=== PATIENT | male | born 1980 ===

== ENCOUNTER 2017-02-17 18:40 | Emergency (ER) | payer BC ==
[2017-02-17 19:06] VITALS: BP 122/72; PULSE 80; RESP 16; TEMP 98.4; O2SAT 98; BMI 30.2
--- NOTE | 2017-02-17 19:53 | ED PDOC ---
Arrival/HPI - General Chief Complaint: Cough, Cold, Congestion Time Seen by Provider: 02/17/17 18:51 Historian: Patient - History of Present Illness Narrative History of Present Illness (Text): 02/17/17 19:50 36-year-old male presents today with a 6 week history of dry nonproductive cough. Patient was seen by his primary care physician and started on Zithromax as well as Zyrtec. Patient states the cough has continued. Patient states he had a chest x-ray 2 weeks ago and has a scheduled appointment with a granulator operator but it is a month out. Patient states he is concerned because he still has cough. Denies fevers or chills. No chest pain or shortness of breath. Patient states he has a history of GERD and takes omeprazole daily. Patient with a history of postnasal drip in the past does not take any medications. States is some slight nasal congestion. No other complaints Time/Duration: > week (6 weeks) Symptom Onset: Gradual Symptom Course: Unchanged Severity Level: Mild Past Medical History - Provider Review Nursing Documentation Reviewed: Yes - Travel History Have you recently traveled outside [place] w/in the past 3 mons?: No - Infectious Disease Hx of Infectious Diseases: None - Tetanus Immunization Tetanus Immunization: Unknown - Past Medical History Past Medical History: No Previous - Cardiac Hx Cardiac Disorders: No - Pulmonary Hx Respiratory Disorders: Yes Hx Sleep Apnea: Yes (cpap at home) - Neurological Hx Neurological Disorder: No - HEENT Hx HEENT Disorder: No - Renal Hx Renal Disorder: Yes Hx Kidney Stones: Yes (lithotripsy x2) - Endocrine/Metabolic Hx Endocrine Disorders: No - Hematological/Oncological Hx Blood Disorders: No - Integumentary Hx Psoriasis: Yes (knees arms fingers) - Musculoskeletal/Rheumatological Hx Musculoskeletal Disorders: Yes (scoliosis) Hx Back Pain: Yes Other/Comment: chronic r knee pain - Gastrointestinal Hx Gastrointestinal Disorders: Yes Hx Gastroesophageal Reflux: Yes - Genitourinary/Gynecological Hx Genitourinary Disorders: Yes Hx Hematuria: Yes Other/Comment: Chronic testicular pain - Psychiatric Hx Psychophysiologic Disorder: No Hx Substance Use: No - Past Surgical History Past Surgical History: No Previous - Surgical History Hx Orthopedic Surgery: Yes (right pinky as a child) Other/Comment: lithotripsy x2 - Anesthesia Hx Anesthesia: Yes Hx Anesthesia Reactions: No Hx Malignant Hyperthermia: No - Suicidal Assessment Feels Threatened In Home Enviroment: No Family/Social History - Physician Review Nursing Documentation Reviewed: Yes Family/Social History: Unknown Family HX Smoking Status: Never Smoked Hx Alcohol Use: No Hx Substance Use: No Hx Substance Use Treatment: No Allergies/Home Meds Allergies/Adverse Reactions: Allergies No Known Allergies Allergy (Verified 06/30/16 03:13) Home Medications: Home Meds Medication Instructions Recorded Confirmed Omeprazole 40 mg PO DAILY 06/10/16 02/17/17 Review of Systems - Review of Systems Constitutional: absent: Fatigue, Fevers ENT: Sinus Congestion. absent: Sore Throat Respiratory: Cough. absent: SOB, Sputum, Wheezing Cardiovascular: absent: Chest Pain, Palpitations Gastrointestinal: absent: Abdominal Pain, Nausea, Vomiting Genitourinary Male: absent: Dysuria, Frequency, Hematuria Musculoskeletal: absent: Arthralgias, Back Pain, Neck Pain Skin: absent: Rash, Pruritis Neurological: absent: Headache, Dizziness Psychiatric: absent: Anxiety, Depression Physical Exam Vital Signs Reviewed: Yes Vital Signs Temp Pulse Resp BP Pulse Ox 02/17/17 19:05 98.4 F 80 16 122/72 98 Temperature: Afebrile Blood Pressure: Normal Pulse: Regular Respiratory Rate: Normal Appearance: Positive for: Well-Appearing, Non-Toxic, Comfortable Pain Distress: None Mental Status: Positive for: Alert and Oriented X 3 - Systems Exam Head: Present: Atraumatic Conjunctiva: Present: Normal Mouth: Present: Moist Mucous Membranes. No: Drooling, Trismus Pharnyx: Present: Normal. No: ERYTHEMA, EXUDATE, TONSILS ENLARGED, Peritonsilar Swelling, Uvular Deviation Nose (External): Present: Atraumatic Nose (Internal): Present: Normal Inspection Neck: Present: Normal Range of Motion, Trachea Midline Respiratory/Chest: Present: Clear to Auscultation, Good Air Exchange. No: Respiratory Distress, Accessory Muscle Use Cardiovascular: Present: Regular Rate and Rhythm, Normal S1, S2. No: Murmurs Neurological: Present: GCS=15 Skin: Present: Warm, Dry, Normal Color. No: Rashes Psychiatric: Present: Alert, Oriented x 3 Medical Decision Making ED Course and Treatment: 02/17/17 19:54 36-year-old male with cough 6 weeks Chest x-ray shows no infiltrate effusion or cardiomegaly pt has already completed a course of ABX (zithromax). will d/c home with albuterol, singular, flonase. will have patient f/u with PMD within the next 2 days. advised f/u with granulator operator as directed by his primary care physician. Patient verbalizes understanding of discharge instructions and need for immediate followup. all aspects of this case were discussed the attending of record. Impression: Cough, chronic Albuterol 2 puffs every 4-6 hours as needed for cough Singulair once daily Flonase 2 sprays each nostril once daily Continue taking her omeprazole daily Follow-up with primary care physician within the next 2 days Follow-up with a granulator operator within the next 2 days Return if symptoms worsen or persist or if new concerning symptoms develop - RAD Interpretation Radiology Orders: 02/17/17 19:11 CHEST TWO VIEWS (PA/LAT) [RAD] Stat Disposition/Present on Arrival - Present on Arrival Any Indicators Present on Arrival: No History of DVT/PE: No History of Uncontrolled Diabetes: No Urinary Catheter: No History of Decub. Ulcer: No History Surgical Site Infection Following: None - Disposition Have Diagnosis and Disposition been Completed?: Yes Diagnosis: Cough Disposition: HOME/ ROUTINE Disposition Time: 19:59 Patient Plan: Discharge Condition: GOOD Discharge Instructions (ExitCare): Acute Cough (ED) Additional Instructions: Albuterol 2 puffs every 4-6 hours as needed for cough Singulair once daily Flonase 2 sprays each nostril once daily Continue taking her omeprazole daily Follow-up with primary care physician within the next 2 days Follow-up with a granulator operator within the next 2 days Return if symptoms worsen or persist or if new concerning symptoms develop Prescriptions: Albuterol HFA [Ventolin HFA 90 mcg/actuation (8 g)] 2 puff IH [id number] PRN #1 inhaler PRN Reason: Cough Fluticasone Nasal [Flonase] 2 spr NS DAILY #1 spr Montelukast Sodium [Singulair] 10 mg PO DAILY #30 tablet Referrals: Vasiliy Keyes MD [Primary Care Provider] - Follow up with primary Madi Monaco MD [Staff Provider] - Follow up with primary Forms: WORK NOTE
--- NOTE | 2017-02-18 08:02 | RAD ---
HISTORY: cough x 6 weeks COMPARISON: 06/22/2016 TECHNIQUE: Chest PA and lateral FINDINGS: LUNGS: No active pulmonary disease. PLEURA: No significant pleural effusion identified. No pneumothorax apparent. CARDIOVASCULAR: Normal. OSSEOUS STRUCTURES: No significant abnormalities. VISUALIZED UPPER ABDOMEN: Normal. OTHER FINDINGS: None. IMPRESSION: No active disease.
== END 2017-02-17 20:55 | disposition home or self-care (01) ==
LOC: ED 18:40
DX: R05 Cough (principal)

== ENCOUNTER 2017-10-21 17:29 | Observation (INO) | payer BC ==
[2017-10-21 17:30] VITALS: BMI 30.2
[2017-10-21] MEDS ORDERED: Sodium Chloride 0.9% 1,000 ML IV STA (18:18)
[2017-10-21 19:23] LABS: GRAN # 9.08 (1.4-6.5); GRAN % 86.8 % (50.0-68.0); HEMATOCRIT 47.4 % (42.0-52.0); LYMPH # 0.7 (1.2-3.4); LYMPH % 6.7 % (22.0-35.0); MEAN CELL VOLUME 83.9 fl (80.0-105.0); MEAN CORPUSCULAR HEMOGLOBIN 26.7 pg (25.0-35.0); MEAN CORPUSCULAR HGB CONC 31.9 g/dl (31.0-37.0); MEAN PLATELET VOLUME 11.7 fl (7.0-11.0); MONO # 0.7 (0.1-0.6); MONO % 6.5 % (1.0-6.0); RED CELL DISTRIBUTION WIDTH 14.3 % (11.5-14.5); WHITE BLOOD COUNT 10.5 10^3/ul (4.5-11.0)
[2017-10-21 19:32] LABS: ALB/GLOB RATIO 1.5 (1.1-1.8); ALKALINE PHOSPHATASE 70 U/L (38-126); ALT/SGPT 62 U/L (7-56); AMYLASE 42 U/L (35-125); AST/SGOT 27 U/L (17-59); BILIRUBIN,TOTAL 1.1 mg/dL (0.2-1.3); BLOOD UREA NITROGEN 17 mg/dL (7-21); CALCIUM 9.3 mg/dL (8.4-10.5); CARBON DIOXIDE 30 mmol/L (21-33); CHLORIDE 103 mmol/L (98-107); GFR AFRICAN-AMERICAN > 60; GLUCOSE,RANDOM 103 mg/dL (70-110); LIPASE 27 U/L (23-300); POTASSIUM 3.7 mmol/L (3.6-5.0); SODIUM 144 mmol/L (132-148); TOTAL PROTEIN 7.3 g/dL (5.8-8.3)
[2017-10-21] MEDS ORDERED: Iohexol 350 MG/100 ML VIAL ONE (20:56)
--- NOTE | 2017-10-21 22:24 | ED PDOC ---
Arrival/HPI - General Historian: Patient - History of Present Illness Time/Duration: Other (2-3 days) Symptom Onset: Gradual Symptom Course: Worsening Quality: Aching, Burning Severity Level: 6 <An Rivera - Last Filed: 10/21/17 23:41> <Stiven Fry - Last Filed: 10/21/17 23:55> - General Chief Complaint: GI Problem Time Seen by Provider: 10/21/17 17:38 - History of Present Illness Narrative History of Present Illness (Text): 10/21/17 22:32 37-year-old male presents today with abdominal pain one episode of vomiting and diarrhea since this morning. Patient states he's had an upset stomach for the past 3 days but this morning he vomited once and then today was having diarrhea. Patient states other family members had similar symptoms over the weekend. Patient denies fevers or chills. Complaining of a burning and achy pain to the epigastric region. Denies urinary symptoms. Denies fevers or chills. Denies dizziness or weakness. No chest pain or shortness of breath. no medications taken at home. no other complaints. (An Rivera) Past Medical History - Provider Review Nursing Documentation Reviewed: Yes - Travel History Have you recently traveled outside [place] w/in the past 3 mons?: No - Infectious Disease Hx of Infectious Diseases: None - Tetanus Immunization Tetanus Immunization: Unknown - Past Medical History Past Medical History: No Previous - Cardiac Hx Cardiac Disorders: No - Pulmonary Hx Respiratory Disorders: Yes Hx Sleep Apnea: Yes (cpap at home) - Neurological Hx Neurological Disorder: No - HEENT Hx HEENT Disorder: No - Renal Hx Renal Disorder: Yes Hx Kidney Stones: Yes (lithotripsy x2) - Endocrine/Metabolic Hx Endocrine Disorders: Yes Hx Diabetes Mellitus Type 2: Yes - Hematological/Oncological Hx Blood Disorders: No - Integumentary Hx Psoriasis: Yes (knees arms fingers) - Musculoskeletal/Rheumatological Hx Musculoskeletal Disorders: Yes (scoliosis) Hx Back Pain: Yes Other/Comment: chronic r knee pain - Gastrointestinal Hx Gastrointestinal Disorders: Yes Hx Gastroesophageal Reflux: Yes - Genitourinary/Gynecological Hx Genitourinary Disorders: Yes Hx Hematuria: Yes Other/Comment: Chronic testicular pain - Psychiatric Hx Psychophysiologic Disorder: No Hx Substance Use: No - Past Surgical History Past Surgical History: No Previous - Surgical History Hx Orthopedic Surgery: Yes (right pinky as a child) Other/Comment: lithotripsy x2 - Anesthesia Hx Anesthesia: Yes Hx Anesthesia Reactions: No Hx Malignant Hyperthermia: No - Suicidal Assessment Feels Threatened In Home Enviroment: No <An Rivera - Last Filed: 10/21/17 23:41> Family/Social History - Physician Review Nursing Documentation Reviewed: Yes Family/Social History: Unknown Family HX Smoking Status: Never Smoked Hx Alcohol Use: No Hx Substance Use: No Hx Substance Use Treatment: No <An Rivera - Last Filed: 10/21/17 23:41> Allergies/Home Meds <An Rivera - Last Filed: 10/21/17 23:41> <Stiven Fry - Last Filed: 10/21/17 23:55> Allergies/Adverse Reactions: Allergies No Known Allergies Allergy (Verified 10/21/17 17:35) Home Medications: Home Meds Medication Instructions Recorded Confirmed Omeprazole 40 mg PO DAILY 06/10/16 10/21/17 SITagliptin [Januvia] 100 mg PO DAILY 10/21/17 10/21/17 Review of Systems - Review of Systems Constitutional: absent: Fatigue, Fevers Respiratory: absent: SOB, Cough Cardiovascular: absent: Chest Pain, Palpitations Gastrointestinal: Abdominal Pain, Diarrhea, Nausea, Vomiting Genitourinary Male: absent: Dysuria, Frequency, Hematuria Musculoskeletal: absent: Arthralgias, Back Pain, Neck Pain Skin: absent: Rash, Pruritis Neurological: absent: Headache, Dizziness Psychiatric: absent: Anxiety, Depression, Suicidal Ideation <An Rivera - Last Filed: 10/21/17 23:41> Physical Exam Vital Signs Reviewed: Yes Temperature: Afebrile Blood Pressure: Normal Pulse: Tachycardic Respiratory Rate: Normal Appearance: Positive for: Well-Appearing, Non-Toxic, Comfortable Pain Distress: None Mental Status: Positive for: Alert and Oriented X 3 - Systems Exam Head: Present: Atraumatic Mouth: Present: Moist Mucous Membranes Neck: Present: Normal Range of Motion Respiratory/Chest: Present: Clear to Auscultation, Good Air Exchange. No: Respiratory Distress, Accessory Muscle Use Cardiovascular: Present: Regular Rate and Rhythm, Normal S1, S2. No: Murmurs Abdomen: Present: Tenderness, Normal Bowel Sounds. No: Distention, Peritoneal Signs, Rebound, Guarding Back: Present: Normal Inspection. No: CVA Tenderness, Midline Tenderness, Paraspinal Tenderness Upper Extremity: Present: Normal ROM Lower Extremity: Present: Normal ROM Neurological: Present: GCS=15 Skin: Present: Warm, Dry, Normal Color. No: Rashes Psychiatric: Present: Alert, Oriented x 3 <An Rivera - Last Filed: 10/21/17 23:41> Vital Signs Temp Pulse Resp BP Pulse Ox 10/21/17 22:35 92 H 16 124/68 97 10/21/17 17:36 99.2 F 105 H 17 129/76 96 Medical Decision Making <An Rivera Joanie - Last Filed: 10/21/17 23:41> <Stiven Fry - Last Filed: 10/21/17 23:55> ED Course and Treatment: 10/21/17 22:37 Patient is nontoxic well appearing with stable vital signs presenting with abdominal pain CBC within normal limits CMP within normal limits Amylase within normal limits Lipase within normal limits Urinalysis + blood CAT scan: FINDINGS: Lower thorax: Heart size is normal. There is minimal scarring at the lung bases. ABDOMEN: Liver: There is fatty infiltration of the liver. Gallbladder and bile ducts: unremarkable Pancreas: ThePancreas is mildly atrophic. Spleen: unremarkable Adrenals: unremarkable Kidneys and ureters: There is a right renal cyst. There are low attenuation left renal lesions too small to accurately characterize.There is no pelvocaliectasis or ureterectasis. Stomach and bowel: Stomach is incompletely distended which accentuates the gastric wall.Bowel rotation is normal. There is fluid and air throughout the small bowel. There are mildly distended jejunal loops in the left upper quadrant. There is no obstruction. There is mild distal internal ileal wall thickening. There is mild prominence of the appendix. There is no pericecal inflammation.Colon is incompletely distended which limits evaluation. There is scattered diverticulosis Appendix: See stomach and bowel PELVIS: Bladder: unremarkable Reproductive: Seminal vesicles and prostate are unremarkable. ABDOMEN and PELVIS: Intraperitoneal space: There is no free air or free fluid. Bones/joints: There are degenerative changes in the osseus structures. Soft tissues: There is a small fat containing umbilical hernia. Vasculature: Vascular structures are unremarkable. Lymph nodes: There is no pathologic adenopathy. Fatty liver, no acute solid visceral abnormality; mild ileus, no obstruction; no CT findings of appendicitis or diverticulitis Patient reassessment: pt with continued abdominal tenderness; + diffuse tenderness. Discussed all results with patient in depth case discussed with dr. redmond covering for dr. keyes; accepts observational status admission. case discussed with claim review medical director. Impression: Abdominal pain, intractable observational status to med/surg. (An Rivera) - Lab Interpretations Lab Results: 10/21/17 18:50 10/21/17 18:50 Lab Results 10/21/17 22:36: Urine Color Yellow, Urine Appearance Clear, Urine pH 6.0, Ur Specific [place] 1.015, Urine Protein Trace H, Urine Glucose (UA) Negative, Urine Ketones Negative, Urine Blood Moderate H, Urine Nitrate Negative, Urine Bilirubin Negative, Urine Urobilinogen 0.2, Ur Leukocyte Esterase Negative, Urine RBC 2 - 5, Urine WBC 0 - 2, Ur Epithelial Cells 0 - 2, Amorphous Sediment Few, Urine Other Mucus 10/21/17 18:50: WBC 10.5, RBC 5.65, Hgb 15.1, Hct 47.4, MCV 83.9, MCH 26.7, MCHC 31.9, RDW 14.3, Plt Count 205, MPV 11.7 H, Gran % 86.8 H, Lymph % (Auto) 6.7 L, [place] % (Auto) 6.5 H, Eos % (Auto) 0.0 L, Baso % (Auto) 0.0, Gran # 9.08 H , Lymph # 0.7 L, [place] # 0.7 H, Eos # 0.0, Baso # 0.00 10/21/17 18:50: Sodium 144, Potassium 3.7, Chloride 103, Carbon Dioxide 30, Anion Gap 14, BUN 17, Creatinine 1.3, Est GFR ( Amer) > 60, Est GFR (Non- Af Amer) > 60, Random Glucose 103, Calcium 9.3, Total Bilirubin 1.1, AST 27, ALT 62 H, Alkaline Phosphatase 70, Total Protein 7.3, Albumin 4.3, Globulin 3.0 , Albumin/Globulin Ratio 1.5, Amylase 42, Lipase 27 10/21/17 17:43: POC Glucose (mg/dL) 87 - RAD Interpretation Radiology Orders: 10/21/17 18:17 ABD & PELVIS IV CONTRAST ONLY [CT] Stat 10/21/17 18:18 CHEST PORTABLE [RAD] Stat - Medication Orders Current Medication Orders: Discontinued Medications Sodium Chloride (Sodium Chloride 0.9%) 1,000 mls @ 999 mls/hr IV .Q1H1M STA Stop: 10/21/17 19:18 Last Admin: 10/21/17 18:39 Dose: 999 mls/hr eMAR Start Stop Document 10/21/17 18:39 OCS (Rec: 10/21/17 18:40 OCS [id number]) Intravenous Solution Start Date 10/21/17 Start Time 18:40 End Date 10/21/17 End time 19:41 Total Infusion Time 61 Morphine Sulfate (Morphine) 2 mg IVP STAT STA Stop: 10/21/17 23:28 Last Admin: 10/21/17 23:40 Dose: 2 mg MAR Pain Assessment Document 10/21/17 23:40 AB (Rec: 10/21/17 23:40 AB [place] [id number]) Pain Reassessment Is this a pain reassessment? Yes Sleep Is patient sleeping during reassessment? No Presence of Pain Presence of Pain Yes Pain Scale Used Pain Scale Used Numeric Location Upper or Lower Upper Pain Location Body Site Abdomen Description Description Constant Intensity of Pain at present 7 Pain Behavior Guarding Aggravating Factors ADL's Alleviating Factors/Management Medication Techniques Alleviating Factors Medication IVP Administration Document 10/21/17 23:40 AB (Rec: 10/21/17 23:40 AB [place] [id number]) Charges for Administration # of IVP Administrations 1 Ondansetron HCl (Zofran Inj) 4 mg IVP STAT STA Stop: 10/21/17 18:19 Last Admin: 10/21/17 18:40 Dose: 4 mg IVP Administration Document 10/21/17 18:40 OCS (Rec: 10/21/17 18:40 OCS [id number]) Charges for Administration # of IVP Administrations 1 Pantoprazole Sodium (Protonix Inj) 40 mg IVP STAT STA Stop: 10/21/17 23:28 Last Admin: 10/21/17 23:40 Dose: 40 mg IVP Administration Document 10/21/17 23:40 AB (Rec: 10/21/17 23:40 AB [place] [id number]) Charges for Administration # of IVP Administrations 1 - PA / ORTHOPEDIC PHYSICIAN / Resident Statement / has reviewed & agrees with the documentation as recorded. / has examined the patient and agrees with the treatment plan. <Stiven Fry - Last Filed: 10/21/17 23:55> Disposition/Present on Arrival - Present on Arrival Any Indicators Present on Arrival: Yes History of DVT/PE: No History of Uncontrolled Diabetes: Yes Urinary Catheter: No History of Decub. Ulcer: No History Surgical Site Infection Following: None - Disposition Have Diagnosis and Disposition been Completed?: Yes Disposition Time: 23:31 Patient Plan: Observation <An Rivera - Last Filed: 10/21/17 23:41> <Stiven Fry - Last Filed: 10/21/17 23:55> - Disposition Diagnosis: Intractable abdominal pain Disposition: HOSPITALIZED Patient Problems: Current Active Problems Problem Status Onset Intractable abdominal pain Acute Condition: FAIR Referrals: Vasiliy Keyes MD [Primary Care Provider] - Follow up with primary Forms: [employer] ([place])
[2017-10-21 22:52] LABS: URINE BILIRUBIN NEGATIVE (NEGATIVE); URINE BLOOD MODERATE (NEGATIVE); URINE GLUCOSE (UA) NEGATIVE (NEGATIVE); URINE KETONE NEGATIVE (NEGATIVE); URINE LEUKOCYTE ESTERASE NEGATIVE Leu/uL (NEGATIVE); URINE PROTEIN TRACE mg/dL (<30 mg/dL); URINE UROBILINOGEN 0.2 E.U./dL (<1 E.U./dL)
[2017-10-21 22:53] LABS: URINE APPEARANCE CLEAR (CLEAR); URINE COLOR YELLOW (YELLOW)
--- NOTE | 2017-10-21 23:06 | CT ---
EXAM: CT Abdomen and Pelvis With Intravenous Contrast EXAM DATE/TIME: 10/21/2017 6:17 PM CLINICAL HISTORY: 37 years old, male; Pain; Abdominal pain; Acute; Additional info: Abd pain TECHNIQUE: Axial computed tomography images of the abdomen and pelvis with intravenous contrast. All CT scans at this facility use one or more dose reduction techniques, viz.: automated exposure control; ma/kV adjustment per patient size (including targeted exams where dose is matched to indication; i.e. head); or iterative reconstruction technique. Coronal and sagittal reformatted images were created and reviewed. CONTRAST: 100 mL of omni 350 administered intravenously. COMPARISON: CT - ABD PELVIS W/O PO OR IV CONT 2016-08-17 23:06 FINDINGS: Lower thorax: Heart size is normal. There is minimal scarring at the lung bases. ABDOMEN: Liver: There is fatty infiltration of the liver. Gallbladder and bile ducts: unremarkable Pancreas: ThePancreas is mildly atrophic. Spleen: unremarkable Adrenals: unremarkable Kidneys and ureters: There is a right renal cyst. There are low attenuation left renal lesions too small to accurately characterize.There is no pelvocaliectasis or ureterectasis. Stomach and bowel: Stomach is incompletely distended which accentuates the gastric wall.Bowel rotation is normal. There is fluid and air throughout the small bowel. There are mildly distended jejunal loops in the left upper quadrant. There is no obstruction. There is mild distal internal ileal wall thickening. There is mild prominence of the appendix. There is no pericecal inflammation.Colon is incompletely distended which limits evaluation. There is scattered diverticulosis Appendix: See stomach and bowel PELVIS: Bladder: unremarkable Reproductive: Seminal vesicles and prostate are unremarkable. ABDOMEN and PELVIS: Intraperitoneal space: There is no free air or free fluid. Bones/joints: There are degenerative changes in the osseus structures. Soft tissues: There is a small fat containing umbilical hernia. Vasculature: Vascular structures are unremarkable. Lymph nodes: There is no pathologic adenopathy. Fatty liver, no acute solid visceral abnormality; mild ileus, no obstruction; no CT findings of appendicitis or diverticulitis
[2017-10-21] MEDS ORDERED: Morphine 2 mg/ml ISec IVP STA (23:27)
[2017-10-21 23:41] LABS: URINE AMORPHOUS SEDIMENT FEW; URINE EPITHELIAL CELLS 0 - 2 /hpf (0-5); URINE WBC 0 - 2 /hpf (0-6)
[2017-10-22] MEDS ORDERED: Morphine 2 mg/ml ISec IVP PRN (01:27)
[2017-10-22 01:32] VITALS: RESP 20
--- NOTE | 2017-10-22 02:10 | CP.PCM.HP ---
History of Present Illness - History of Present Illness History of Present Illness: Dixon Evangelist MORENO PGY1 - Internal Medicine H&P CC: Abdominal pain, vomiting HPI: 37 yo M with PMH of DM, BRITNEY, GERD, scoliosis, emphysema and asthma, and psoriasis presents to the ER complaining of epigastric abdominal pain for two days. He also reports one episode of nonbloody, nonbilious vomiting at 5:30 AM, and diarrhea x1d; 6 watery bowel movements. His abdominal pain started Friday evening, after eating a "weird chicken steak" cooked at home by a relative who also fell similarly ill. The following day, he continued to have abdominal pain , but without nausea, vomiting, diarrhea, fevers, or chills. Today, he woke up early in the morning and vomited suddenly, once, nonbloody, nonbilious; he had no further episodes of nausea or vomiting. Afterwards, he had 6 loose bowel movements, watery, brown, without blood, mucus, or discoloration; last BM was at 3 PM. He now denies any fever, chills, nausea, diarrhea, constipation, headache, hematemesis, hematochezia, melena, new back pain. He does report occasional sharp left sided chest pain, nonradiating, without shortness of breath, dyspnea on exertion, or diaphoresis. He also reports a few instances of coughing up blood tinged sputum after vomiting. Denies any further episodes after early this morning. He denies coffee ground emesis, lightheadedness, dizziness, fatigue. Remainder of 12 point ROS was obtained and was negative. Of note, he reports several sick contacts with similar symptoms, including one whom he dined with. PMH: DM, BRITNEY, GERD, scoliosis, emphysema and asthma, and psoriasis PSH: Denies Soc: Denies tobacco, alcohol, or illicits FHx: Cerebral palsy and epilepsy in his mother All: NKDA PMD: Dr. Keyes Pharmacy: [facility] on and [place] Present on Admission - Present on Admission Any Indicators Present on Admission: No Past Patient History - Infectious Disease Hx of Infectious Diseases: None - Tetanus Immunizations Tetanus Immunization: Unknown - Past Social History Smoking Status: Never Smoked - CARDIAC Hx Cardiac Disorders: No - PULMONARY Hx Respiratory Disorders: Yes Hx Sleep Apnea: Yes (cpap at home) - NEUROLOGICAL Hx Neurological Disorder: No - HEENT Hx HEENT Problems: No - RENAL Hx Chronic Kidney Disease: Yes Hx Kidney Stones: Yes (lithotripsy x2) - ENDOCRINE/METABOLIC Hx Endocrine Disorders: Yes Hx Diabetes Mellitus Type 2: Yes - HEMATOLOGICAL/ONCOLOGICAL Hx Blood Disorders: No - INTEGUMENTARY Hx Psoriasis: Yes (knees arms fingers) - MUSCULOSKELETAL/RHEUMATOLOGICAL Hx Musculoskeletal Disorders: Yes (scoliosis) Hx Back Pain: Yes Hx Falls: No Other/Comment: chronic r knee pain - GASTROINTESTINAL Hx Gastrointestinal Disorders: Yes Hx Gastroesophageal Reflux: Yes - GENITOURINARY/GYNECOLOGICAL Hx Genitourinary Disorders: Yes Hx Hematuria: Yes Other/Comment: Chronic testicular pain - PSYCHIATRIC Hx Psychophysiologic Disorder: No - SURGICAL HISTORY Hx Orthopedic Surgery: Yes (right pinky as a child) Other/Comment: lithotripsy x2 - ANESTHESIA Hx Anesthesia: Yes Hx Anesthesia Reactions: No Hx Malignant Hyperthermia: No Meds Allergies/Adverse Reactions: Allergies Allergy/AdvReac Type Severity Reaction Status Date / Time No Known Allergies Allergy Verified 10/21/17 17:35 Physical Exam - Constitutional Appears: Non-toxic, No Acute Distress - Head Exam Head Exam: ATRAUMATIC, NORMOCEPHALIC - Eye Exam Eye Exam: EOMI, Normal appearance, PERRL Additional comments: No conjunctival pallor - ENT Exam ENT Exam: Mucous Membranes Dry - Neck Exam Neck exam: Positive for: Normal Inspection - Respiratory Exam Respiratory Exam: Clear to Auscultation Bilateral, NORMAL BREATHING PATTERN - Cardiovascular Exam Cardiovascular Exam: RRR, +S1, +S2 - GI/Abdominal Exam GI & Abdominal Exam: Hypoactive Bowel Sounds, Normal Bowel Sounds, Soft, Tenderness (Mild diffuse tenderness, worst in epigastrum). absent: Distended, Firm, Guarding, Organomegaly, Rigid - Extremities Exam Extremities exam: Negative for: calf tenderness, pedal edema - Neurological Exam Neurological exam: Alert, Oriented x3 - Psychiatric Exam Psychiatric exam: Normal Affect, Normal Mood - Skin Skin Exam: Dry, Intact, Normal Color Additional comments: Dry macular rash over bridge of nose Papular scars spread diffusely over shoulders and back Results - Vital Signs Recent Vital Signs: Last Vital Signs Temp 98.9 F 10/22/17 01:15 Pulse 76 10/22/17 01:15 Resp 20 10/22/17 01:15 BP 129/70 10/22/17 01:15 Pulse Ox 97 10/22/17 00:04 - Labs Result Diagrams: 10/21/17 18:50 10/21/17 18:50 Assessment & Plan - Assessment and Plan (Free Text) Assessment: 37 yo M with PMH of DM, BRITNEY, GERD, scoliosis, emphysema and asthma, and psoriasis presented to the ER complaining of epigastric abdominal pain for two days. He also reports one episode of nonbloody, nonbilious vomiting early AM on day of presentation, and diarrhea x1d; 6 watery bowel movements. Multiple sick contacts with similar symptoms Plan Abdominal pain - Likely 2/2 toxin gastroenteritis vs viral gastroenteritis vs ileus vs GERD - CT abdomen shows mild ileus with distended jejunal loops - Maintain NPO overnight - Advance diet tomorrow as tolerated, starting with CLD - Zofran PRN for nausea - Morphine and acetaminophen for pain - Recheck CBC/CMP with AM labs; monitor for worsening anemia accounting for dilutional factor Dehydration - No significant electrolyte abnormalities - Dry mucous membranes; hemoconcentrated; mild elevation in BUN and Cr - Received 1L bolus in ER; continue IVF hydration NS@175cc/hr DM - Patient takes januvia at home once daily; reportedly good glycemic control - Hold oral hyoglycemics - SSI Low with Accucheck ACHS GERD - Patient takes omeprazole - Start protonix 40mg PO Emphysema/Asthma - Patient reportedly uses 2 inhalers at home, but does not recall their names - Will attempt to contact patient's pharmacy in AM to reconcile medications GI Ppx: Protonix, as above DVT Ppx: Heparin Patient discussed and case reviewed with Dr. Orlando
[2017-10-22] MEDS ORDERED: Pantoprazole 40 mg EC Tab PO SCH (06:00)
[2017-10-22 07:15] LABS: BASO # 0.01 K/mm3 (0.0-2.0); BASO % 0.1 % (0.0-3.0); EOS % 0.4 % (1.5-5.0); GRAN # 6.3 (1.4-6.5); GRAN % 74.5 % (50.0-68.0); LYMPH # 1.1 (1.2-3.4); LYMPH % 12.7 % (22.0-35.0); MEAN CORPUSCULAR HEMOGLOBIN 25.6 pg (25.0-35.0); MEAN CORPUSCULAR HGB CONC 30.5 g/dl (31.0-37.0); MEAN PLATELET VOLUME 11.5 fl (7.0-11.0); MONO % 12.3 % (1.0-6.0); RED CELL DISTRIBUTION WIDTH 14.4 % (11.5-14.5); WHITE BLOOD COUNT 8.5 10^3/ul (4.5-11.0)
[2017-10-22 07:49] LABS: ALB/GLOB RATIO 1.3 (1.1-1.8); ALKALINE PHOSPHATASE 60 U/L (38-126); ALT/SGPT 51 U/L (7-56); AST/SGOT 26 U/L (17-59); BILIRUBIN,TOTAL 1.1 mg/dL (0.2-1.3); BLOOD UREA NITROGEN 15 mg/dL (7-21); CALCIUM 8.4 mg/dL (8.4-10.5); CARBON DIOXIDE 29 mmol/L (21-33); CHLORIDE 108 mmol/L (98-107); GFR AFRICAN-AMERICAN > 60; GLUCOSE,RANDOM 104 mg/dL (70-110); MAGNESIUM 1.4 mg/dL (1.7-2.2); PHOSPHOROUS 2.6 mg/dL (2.5-4.5); POTASSIUM 3.4 mmol/L (3.6-5.0); SODIUM 145 mmol/L (132-148); TOTAL PROTEIN 6.3 g/dL (5.8-8.3)
[2017-10-22] MEDS: Insulin Reg-LOW-Coverage SC SCH ×2 (08:19→11:34)
[2017-10-22] MEDS ORDERED: Magnesium Sulfate 2 GM in Sodium Chloride 0.9% 100 ML IVPB ONE (08:25)
[2017-10-22] MEDS ORDERED: Potassium Chloride 20 mEq ER Tab PO ONE (08:25)
[2017-10-22 08:37] VITALS: BP 105/59; PULSE 77; TEMP 98.4; O2SAT 96
--- NOTE | 2017-10-22 10:43 | CP.PCM.DIS ---
<Isaias Tang - Last Filed: 10/22/17 10:40> Provider - Provider Date of Admission: 10/21/17 23:56 Attending physician: Vasiliy Keyes MD Primary care physician: Vasiliy Keyes MD Time Spent in preparation of Discharge (in minutes): 40 Diagnosis - Discharge Diagnosis (1) Gastroenteritis Status: Acute (2) Diabetes Status: Chronic (3) GERD (gastroesophageal reflux disease) Status: Chronic (4) BRITNEY (obstructive sleep apnea) Status: Chronic (5) Emphysema, unspecified Status: Chronic (6) Asthma Status: Chronic (7) Psoriasis Status: Chronic Hospital Course - Lab Results Lab Results: Most Recent Lab Values WBC 8.5 10^3/ul (4.5-11.0) 10/22/17 06:45 RBC 5.12 10^6/uL (3.5-6.1) 10/22/17 06:45 Hgb 13.1 g/dL (14.0-18.0) L D 10/22/17 06:45 Hct 43.0 % (42.0-52.0) 10/22/17 06:45 MCV 84.0 fl (80.0-105.0) 10/22/17 06:45 MCH 25.6 pg (25.0-35.0) 10/22/17 06:45 MCHC 30.5 g/dl (31.0-37.0) L 10/22/17 06:45 RDW 14.4 % (11.5-14.5) 10/22/17 06:45 Plt Count 177 10^3/uL (120.0-450.0) 10/22/17 06:45 MPV 11.5 fl (7.0-11.0) H 10/22/17 06:45 Gran % 74.5 % (50.0-68.0) H 10/22/17 06:45 Lymph % (Auto) 12.7 % (22.0-35.0) L 10/22/17 06:45 [place] % (Auto) 12.3 % (1.0-6.0) H 10/22/17 06:45 Eos % (Auto) 0.4 % (1.5-5.0) L 10/22/17 06:45 Baso % (Auto) 0.1 % (0.0-3.0) 10/22/17 06:45 Gran # 6.30 (1.4-6.5) 10/22/17 06:45 Lymph # 1.1 (1.2-3.4) L 10/22/17 06:45 [place] # 1.0 (0.1-0.6) H 10/22/17 06:45 Eos # 0.0 (0.0-0.7) 10/22/17 06:45 Baso # 0.01 K/mm3 (0.0-2.0) 10/22/17 06:45 Sodium 145 mmol/L (132-148) 10/22/17 06:45 Potassium 3.4 mmol/L (3.6-5.0) L 10/22/17 06:45 Chloride 108 mmol/L (98-107) H 10/22/17 06:45 Carbon Dioxide 29 mmol/L (21-33) 10/22/17 06:45 Anion Gap 11 (10-20) 10/22/17 06:45 BUN 15 mg/dL (7-21) 10/22/17 06:45 Creatinine 1.2 mg/dl (0.8-1.5) 10/22/17 06:45 Est GFR ( Amer) > 60 10/22/17 06:45 Est GFR (Non-Af Amer) > 60 10/22/17 06:45 POC Glucose (mg/dL) 98 mg/dL (65-110) 10/22/17 07:27 Random Glucose 104 mg/dL (70-110) 10/22/17 06:45 Calcium 8.4 mg/dL (8.4-10.5) 10/22/17 06:45 Phosphorus 2.6 mg/dL (2.5-4.5) 10/22/17 06:45 Magnesium 1.4 mg/dL (1.7-2.2) L 10/22/17 06:45 Total Bilirubin 1.1 mg/dL (0.2-1.3) 10/22/17 06:45 AST 26 U/L (17-59) 10/22/17 06:45 ALT 51 U/L (7-56) 10/22/17 06:45 Alkaline Phosphatase 60 U/L (38-126) 10/22/17 06:45 Total Protein 6.3 g/dL (5.8-8.3) 10/22/17 06:45 Albumin 3.6 g/dL (3.0-4.8) 10/22/17 06:45 Globulin 2.7 gm/dL 10/22/17 06:45 Albumin/Globulin Ratio 1.3 (1.1-1.8) 10/22/17 06:45 Amylase 42 U/L (35-125) 10/21/17 18:50 Lipase 27 U/L (23-300) 10/21/17 18:50 Urine Color Yellow (YELLOW) 10/21/17 22:36 Urine Appearance Clear (CLEAR) 10/21/17 22:36 Urine pH 6.0 (4.7-8.0) 10/21/17 22:36 Ur Specific Ama 1.015 (1.005-1.035) 10/21/17 22:36 Urine Protein Trace mg/dL (<30 mg/dL) H 10/21/17 22:36 Urine Glucose (UA) Negative mg/dL (NEGATIVE) 10/21/17 22:36 Urine Ketones Negative mg/dL (NEGATIVE) 10/21/17 22:36 Urine Blood Moderate (NEGATIVE) H 10/21/17 22:36 Urine Nitrate Negative (NEGATIVE) 10/21/17 22:36 Urine Bilirubin Negative (NEGATIVE) 10/21/17 22:36 Urine Urobilinogen 0.2 E.U./dL (<1 E.U./dL) 10/21/17 22:36 Ur Leukocyte Esterase Negative Medardo/uL (NEGATIVE) 10/21/17 22:36 Urine RBC 2 - 5 /hpf (0-2) 10/21/17 22:36 Urine WBC 0 - 2 /hpf (0-6) 10/21/17 22:36 Ur Epithelial Cells 0 - 2 /hpf (0-5) 10/21/17 22:36 Amorphous Sediment Few 10/21/17 22:36 Urine Other Mucus 10/21/17 22:36 - Hospital Course Hospital Course: Isaias Tang PGY [address] Cee/ 37 yo M with PMH of DM, BRITNEY, GERD, scoliosis, emphysema and asthma, and psoriasis presents to the ER complaining of epigastric abdominal pain for two days. He also reports one episode of nonbloody, nonbilious vomiting and diarrhea. His abdominal pain started Friday evening, after eating a "weird chicken steak" cooked at home by a relative who also fell similarly ill. This morning, he woke up early in the morning and vomited suddenly, once, nonbloody, nonbilious; he had no further episodes of nausea or vomiting. Afterwards, he had 6 loose bowel movements, watery, brown, without blood, mucus, or discoloration. He denied any fever, chills, nausea, diarrhea, constipation, headache, hematemesis, hematochezia, melena, new back pain. In ED, patient received IVF and was made NPO overnight. Vital signs and labs were all normal. CT abdomen shows mild ileus with distended jejunal loops but no obstruction. CXR was unremarkable. Diet was advanced and tolerated. The patient had no complaints of fevers/chill, n/v/d and had improved epigastric pain on the morning of discharge. He's tolerated his breakfast well. He's instructed to eat soft small meals and to take Zofran PRN n/v and to continue his medications. Patient will follow up with PMD Dr. Keyes within 2 weeks of discharge. Medically stable for discharge. - Date & Time of H&P Date of H&P: 10/22/17 Time of H&P: 01:51 Discharge Exam - Head Exam Head Exam: ATRAUMATIC, NORMAL INSPECTION, NORMOCEPHALIC - Eye Exam Eye Exam: EOMI, Normal appearance, PERRL Pupil Exam: NORMAL ACCOMODATION - ENT Exam ENT Exam: Mucous Membranes Moist, Normal Exam - Neck Exam Neck exam: Normal Inspection - Respiratory Exam Respiratory Exam: Clear to PA & Lateral, NORMAL BREATHING PATTERN, UNREMARKABLE. absent: Rales, Rhonchi, Wheezes - Cardiovascular Exam Cardiovascular Exam: RRR, +S1, +S2. absent: JVD - GI/Abdominal Exam GI & Abdominal Exam: Normal Bowel Sounds, Soft, Tenderness (to deep palpation epigatric region). absent: Distended, Guarding, Organomegaly - Extremities Exam Extremities exam: full ROM, normal inspection - Back Exam Back exam: NORMAL INSPECTION. absent: tenderness - Neurological Exam Neurological exam: Alert, Oriented x3 - Psychiatric Exam Psychiatric exam: Normal Affect, Normal Mood - Skin Skin Exam: Normal Color, Warm Discharge Plan - Discharge Medications Prescriptions: Ondansetron ODT [Zofran ODT] 8 mg PO Q8 PRN #12 odt PRN Reason: Nausea/Vomiting - Follow Up Plan Condition: FAIR Disposition: HOME/ ROUTINE Instructions: Influenza Virus Vaccine (By injection), Ondansetron (By mouth), Gastroenteritis (DC) Additional Instructions: - please take the zofran medication if needed for nausea/vomiting as prescribed - please continue your home medications - please follow up with Dr. Keyes within 2 weeks of discharge - if you continue to experience nausea/vomiting, fevers/chills or continued stomach issues, please return to ER for evaluation Referrals: Vasiliy Keyes MD [Primary Care Provider] - <Bobby Cee - Last Filed: 10/24/17 17:27> Provider - Provider Date of Admission: 10/21/17 23:56 Attending physician: Vasiliy Keyes MD Primary care physician: Vasiliy Keyes MD Hospital Course - Lab Results Lab Results: Most Recent Lab Values WBC 8.5 10^3/ul (4.5-11.0) 10/22/17 06:45 RBC 5.12 10^6/uL (3.5-6.1) 10/22/17 06:45 Hgb 13.1 g/dL (14.0-18.0) L D 10/22/17 06:45 Hct 43.0 % (42.0-52.0) 10/22/17 06:45 MCV 84.0 fl (80.0-105.0) 10/22/17 06:45 MCH 25.6 pg (25.0-35.0) 10/22/17 06:45 MCHC 30.5 g/dl (31.0-37.0) L 10/22/17 06:45 RDW 14.4 % (11.5-14.5) 10/22/17 06:45 Plt Count 177 10^3/uL (120.0-450.0) 10/22/17 06:45 MPV 11.5 fl (7.0-11.0) H 10/22/17 06:45 Gran % 74.5 % (50.0-68.0) H 10/22/17 06:45 Lymph % (Auto) 12.7 % (22.0-35.0) L 10/22/17 06:45 [place] % (Auto) 12.3 % (1.0-6.0) H 10/22/17 06:45 Eos % (Auto) 0.4 % (1.5-5.0) L 10/22/17 06:45 Baso % (Auto) 0.1 % (0.0-3.0) 10/22/17 06:45 Gran # 6.30 (1.4-6.5) 10/22/17 06:45 Lymph # 1.1 (1.2-3.4) L 10/22/17 06:45 [place] # 1.0 (0.1-0.6) H 10/22/17 06:45 Eos # 0.0 (0.0-0.7) 10/22/17 06:45 Baso # 0.01 K/mm3 (0.0-2.0) 10/22/17 06:45 Sodium 145 mmol/L (132-148) 10/22/17 06:45 Potassium 3.4 mmol/L (3.6-5.0) L 10/22/17 06:45 Chloride 108 mmol/L (98-107) H 10/22/17 06:45 Carbon Dioxide 29 mmol/L (21-33) 10/22/17 06:45 Anion Gap 11 (10-20) 10/22/17 06:45 BUN 15 mg/dL (7-21) 10/22/17 06:45 Creatinine 1.2 mg/dl (0.8-1.5) 10/22/17 06:45 Est GFR ( Amer) > 60 10/22/17 06:45 Est GFR (Non-Af Amer) > 60 10/22/17 06:45 POC Glucose (mg/dL) 116 mg/dL (65-110) H 10/22/17 11:18 Random Glucose 104 mg/dL (70-110) 10/22/17 06:45 Calcium 8.4 mg/dL (8.4-10.5) 10/22/17 06:45 Phosphorus 2.6 mg/dL (2.5-4.5) 10/22/17 06:45 Magnesium 1.4 mg/dL (1.7-2.2) L 10/22/17 06:45 Total Bilirubin 1.1 mg/dL (0.2-1.3) 10/22/17 06:45 AST 26 U/L (17-59) 10/22/17 06:45 ALT 51 U/L (7-56) 10/22/17 06:45 Alkaline Phosphatase 60 U/L (38-126) 10/22/17 06:45 Total Protein 6.3 g/dL (5.8-8.3) 10/22/17 06:45 Albumin 3.6 g/dL (3.0-4.8) 10/22/17 06:45 Globulin 2.7 gm/dL 10/22/17 06:45 Albumin/Globulin Ratio 1.3 (1.1-1.8) 10/22/17 06:45 Amylase 42 U/L (35-125) 10/21/17 18:50 Lipase 27 U/L (23-300) 10/21/17 18:50 Urine Color Yellow (YELLOW) 10/21/17 22:36 Urine Appearance Clear (CLEAR) 10/21/17 22:36 Urine pH 6.0 (4.7-8.0) 10/21/17 22:36 Ur Specific Ama 1.015 (1.005-1.035) 10/21/17 22:36 Urine Protein Trace mg/dL (<30 mg/dL) H 10/21/17 22:36 Urine Glucose (UA) Negative mg/dL (NEGATIVE) 10/21/17 22:36 Urine Ketones Negative mg/dL (NEGATIVE) 10/21/17 22:36 Urine Blood Moderate (NEGATIVE) H 10/21/17 22:36 Urine Nitrate Negative (NEGATIVE) 10/21/17 22:36 Urine Bilirubin Negative (NEGATIVE) 10/21/17 22:36 Urine Urobilinogen 0.2 E.U./dL (<1 E.U./dL) 10/21/17 22:36 Ur Leukocyte Esterase Negative Medardo/uL (NEGATIVE) 10/21/17 22:36 Urine RBC 2 - 5 /hpf (0-2) 10/21/17 22:36 Urine WBC 0 - 2 /hpf (0-6) 10/21/17 22:36 Ur Epithelial Cells 0 - 2 /hpf (0-5) 10/21/17 22:36 Amorphous Sediment Few 10/21/17 22:36 Urine Other Mucus 10/21/17 22:36 Attending/Attestation - Attestation I have personally seen and examined this patient.: Yes I have fully participated in the care of the patient.: Yes I have reviewed all pertinent clinical information, including history, physical exam and plan: Yes Notes (Text): 10/24/17 17:27 Medical record note made by the resident after discussion with my direction and input after the patient was personally seen and examined by me. I have reviewed the chart and agree that the record accurately reflects by personal performance of the history, physical exam, data review, and medical decision-making, in the course for the patient. I have also personally directed the plan of care.
[2017-10-22] MEDS ORDERED: Influenza Vaccine 60 mcg/0.5 mL SYR (4YR UP) IM ONE (11:13)
--- NOTE | 2017-10-22 11:17 | RAD ---
HISTORY: abd pain COMPARISON: 02/17/2017 FINDINGS: LUNGS: No active pulmonary disease. PLEURA: No significant pleural effusion identified, no pneumothorax apparent. CARDIOVASCULAR: Normal. OSSEOUS STRUCTURES: No significant abnormalities. VISUALIZED UPPER ABDOMEN: Normal. OTHER FINDINGS: None. IMPRESSION: No active disease.
[2017-10-22] MEDS ORDERED: Sodium Chloride 0.9% 1,000 ML IV SCH ×2 (12:50)
== END 2017-10-22 14:22 | disposition home or self-care (01) ==
LOC: ED 17:29 → ERH 23:56 → 5RNO 10-22 01:02
PROVIDERS: ADMIT Internal Medicine; ATTEND Internal Medicine
DX: K56.7 Ileus, unspecified (principal); K52.9 Noninfective gastroenteritis and colitis, unspecified; K21.9 Gastro-esophageal reflux disease without esophagitis; L40.9 Psoriasis, unspecified; M41.9 Scoliosis, unspecified; J45.909 Unspecified asthma, uncomplicated; J43.9 Emphysema, unspecified; E11.22 Type 2 diabetes mellitus with diabetic chronic kidney disease; G47.33 Obstructive sleep apnea (adult) (pediatric); N18.9 Chronic kidney disease, unspecified; Z79.899 Other long term (current) drug therapy; Z82.0 Family history of epilepsy and other diseases of the nervous system; Z87.442 Personal history of urinary calculi; E86.0 Dehydration
CPT/HCPCS: 36415; 71010; 74177; 80053; 81001; 82150; 82948; 83690; 83735; 84100; 85025; 90674; 96361; 96374; 96375; 99284; C9113; G0008; G0378; J1644; J2270; J2405; J3475; J7040; Q9967

== ENCOUNTER 2018-01-12 18:12 | Emergency (ER) | payer BC ==
--- NOTE | 2018-01-12 19:10 | ED PDOC ---
Arrival/HPI - General Chief Complaint: Chest Pain Time Seen by Provider: 01/12/18 18:35 Historian: Patient - History of Present Illness Narrative History of Present Illness (Text): 01/12/18 19:11 Pt is a 37 year old male with a pmh of PUD, HTN and DM presents to the ED for intermittent chest pain without radiation for the last 4 days. Pt reports that he feels a tingle or burning sensation over the left side of his chest about every 8 hours. He denies having shortness of breath, headache, fever, chills, nausea, vomiting, diarrhea or any other complaints at this time. Reports having a cough for over a month that ended about 1 week before having chest pain symptoms and recent heartburn. 01/12/18 20:37 Time/Duration: 1-3 hours Symptom Onset: Sudden Symptom Course: Intermittent Quality: Pressure Severity Level: 1 Activities at Onset: Rest Context: Home Past Medical History - Provider Review Nursing Documentation Reviewed: Yes - Travel History Have you recently traveled outside [place] w/in the past 3 mons?: No - Infectious Disease Hx of Infectious Diseases: None - Tetanus Immunization Tetanus Immunization: Unknown - Past Medical History Past Medical History: No Previous - Cardiac Hx Cardiac Disorders: No - Pulmonary Hx Respiratory Disorders: Yes Hx Sleep Apnea: Yes (cpap at home) - Neurological Hx Neurological Disorder: No - HEENT Hx HEENT Disorder: No - Renal Hx Renal Disorder: Yes Hx Kidney Stones: Yes (lithotripsy x2) - Endocrine/Metabolic Hx Endocrine Disorders: Yes - Hematological/Oncological Hx Blood Disorders: No - Integumentary Hx Psoriasis: Yes (knees arms fingers) - Musculoskeletal/Rheumatological Hx Musculoskeletal Disorders: Yes (scoliosis) Hx Back Pain: Yes Hx Falls: No Other/Comment: chronic r knee pain - Gastrointestinal Hx Gastrointestinal Disorders: Yes Hx Gastroesophageal Reflux: Yes - Genitourinary/Gynecological Hx Genitourinary Disorders: Yes Hx Hematuria: Yes Other/Comment: Chronic testicular pain - Psychiatric Hx Psychophysiologic Disorder: No Hx Substance Use: No - Past Surgical History Past Surgical History: No Previous - Surgical History Hx Orthopedic Surgery: Yes (right pinky as a child) Other/Comment: lithotripsy x2 - Anesthesia Hx Anesthesia: Yes Hx Anesthesia Reactions: No Hx Malignant Hyperthermia: No - Suicidal Assessment Feels Threatened In Home Enviroment: No Family/Social History - Physician Review Nursing Documentation Reviewed: Yes Family/Social History: Unknown Family HX Smoking Status: Never Smoked Hx Alcohol Use: Yes Frequency of alcohol use: Socially Hx Substance Use: No Hx Substance Use Treatment: No Allergies/Home Meds Allergies/Adverse Reactions: Allergies No Known Allergies Allergy (Verified 10/21/17 17:35) Home Medications: Home Meds Medication Instructions Recorded Confirmed Omeprazole 40 mg PO DAILY 06/10/16 10/21/17 SITagliptin [Januvia] 100 mg PO DAILY 10/21/17 10/21/17 Review of Systems - Review of Systems Constitutional: Normal Eyes: Normal ENT: Normal Respiratory: Normal Cardiovascular: Normal Gastrointestinal: Normal Genitourinary Male: Normal Musculoskeletal: Normal, Other (left chest pain) Skin: Normal Neurological: Normal Endocrine: Normal Hemo/Lymphatic: Normal Psychiatric: Normal Physical Exam Vital Signs Reviewed: Yes Vital Signs Temp Pulse Resp BP Pulse Ox 01/12/18 21:39 74 18 115/72 96 01/12/18 18:13 98.3 F 75 17 103/63 96 Temperature: Afebrile Blood Pressure: Normal Pulse: Regular Respiratory Rate: Normal Appearance: Positive for: Well-Appearing, Non-Toxic, Comfortable Pain Distress: None Mental Status: Positive for: Alert and Oriented X 3 - Systems Exam Head: Present: Atraumatic, Normocephalic Pupils: Present: PERRL Extroacular Muscles: Present: EOMI Conjunctiva: Present: Normal Mouth: Present: Moist Mucous Membranes Neck: Present: Normal Range of Motion Respiratory/Chest: Present: Clear to Auscultation, Good Air Exchange, Tender to Palpation (left and right pectoralis major). No: Respiratory Distress, Accessory Muscle Use Cardiovascular: Present: Regular Rate and Rhythm, Normal S1, S2. No: Murmurs Abdomen: Present: Normal Bowel Sounds. No: Tenderness, Distention, Peritoneal Signs Back: Present: Normal Inspection. No: CVA Tenderness, Midline Tenderness, Paraspinal Tenderness, Pain with Leg Raise, Decubitus Ulcer, Other Upper Extremity: Present: Normal Inspection. No: Cyanosis, Edema Lower Extremity: Present: Normal Inspection. No: Edema Neurological: Present: GCS=15, CN II-XII Intact, Speech Normal Skin: Present: Warm, Dry, Normal Color. No: Rashes Psychiatric: Present: Alert, Oriented x 3, Normal Insight, Normal Concentration Medical Decision Making ED Course and Treatment: 01/12/18 19:16 Impression Pt is a 37 year old male with a pmh of PUD, HTN and DM presents to the ED for intermittent chest pain without radiation for the last 4 days. Last episode at 5:15pm that lasted a few seconds Pt tender t the bilat pec major Ddx: ACS costochondritis PUD plan chest pain order set CXR assess and dispo Progress Note Pt resting comfortably; pt very stable w/o pain or any other symptoms discussed results with pt; ascertained that he has had acid reflux a lot lately and not taking omeprazole as he should; also takes high dose cinnamon every morning on an empty stomach; possibly another cause of PUD exacerbation Advised him to f/u with Dr. Keyes in the next 24hrs Omeprazole to be taken on an empty stomach in the am VSS and pt ambulated well out of the ED 01/12/18 20:45 - Lab Interpretations Lab Results: 01/12/18 19:20 01/12/18 19:20 Lab Results 01/12/18 19:20: Sodium 143, Potassium 3.7, Chloride 105, Carbon Dioxide 28, Anion Gap 14, BUN 20, Creatinine 1.1, Est GFR ( Amer) > 60, Est GFR (Non- Af Amer) > 60, Random Glucose 87, Calcium 9.7, Magnesium 1.9, Total Bilirubin 0.7, AST 23, ALT 34, Alkaline Phosphatase 77, Lactate Dehydrogenase 387, Total Creatine Kinase 113, Troponin I < 0.01, Total Protein 7.2, Albumin 4.1, Globulin 3.1, Albumin/Globulin Ratio 1.3 01/12/18 19:20: WBC 10.5 D, RBC 5.60, Hgb 14.2, Hct 44.6, MCV 79.6 L D, MCH 25.4, MCHC 31.8, RDW 13.9, Plt Count 199, MPV 11.2 H, Gran % 72.9 H, Lymph % ( Auto) 19.6 L, Crisp % (Auto) 6.2 H, Eos % (Auto) 1.1 L, Baso % (Auto) 0.2, Gran # 7.64 H, Lymph # (Auto) 2.1, Crisp # (Auto) 0.7 H, Eos # (Auto) 0.1, Baso # ( Auto) 0.02 - RAD Interpretation Narrative RAD Interpretations (Text): 01/12/18 20:42 No active disease appreciated on CXR Radiology Orders: 01/12/18 19:05 CHEST PORTABLE [RAD] Stat - EKG Interpretation Interpreted by ED Physician: Yes (NSR with a rate of 70) Disposition/Present on Arrival - Present on Arrival Any Indicators Present on Arrival: No History of DVT/PE: No History of Uncontrolled Diabetes: No Urinary Catheter: No History of Decub. Ulcer: No History Surgical Site Infection Following: None - Disposition Have Diagnosis and Disposition been Completed?: Yes Diagnosis: Costochondritis, PUD (peptic ulcer disease) Disposition: HOME/ ROUTINE Disposition Time: 21:15 Patient Plan: Discharge Condition: GOOD Discharge Instructions (ExitCare): Peptic Ulcers, Costochondritis (DC) Additional Instructions: Dear Bala, Please take your omeprazole on an empty stomach, 30 mins before eating. We recommend that you follow up with your Primary doctor in the next 24 hours to discuss this ER visit. If you experience recurring chest pain along with sweating or other other alarming signs, return to the ER immediately Be Well Referrals: Vasiliy Keyes MD [Primary Care Provider] - Follow up with primary Forms: [employer] (Grenadian)
[2018-01-12 19:13] VITALS: TEMP 98.3; O2SAT 96; BMI 28.0
[2018-01-12 19:39] LABS: BASO # 0.02 K/mm3 (0.0-2.0); BASO % 0.2 % (0.0-3.0); EOS # 0.1 (0.0-0.7); EOS % 1.1 % (1.5-5.0); GRAN # 7.64 (1.4-6.5); GRAN % 72.9 % (50.0-68.0); HEMOGLOBIN 14.2 g/dL (14.0-18.0); LYMPH # 2.1 (1.2-3.4); LYMPH % 19.6 % (22.0-35.0); MEAN CELL VOLUME 79.6 fl (80.0-105.0); MEAN CORPUSCULAR HEMOGLOBIN 25.4 pg (25.0-35.0); MEAN CORPUSCULAR HGB CONC 31.8 g/dl (31.0-37.0); MEAN PLATELET VOLUME 11.2 fl (7.0-11.0); MONO # 0.7 (0.1-0.6); MONO % 6.2 % (1.0-6.0); RBC 5.6 10^6/uL (3.5-6.1); RED CELL DISTRIBUTION WIDTH 13.9 % (11.5-14.5); WHITE BLOOD COUNT 10.5 10^3/ul (4.5-11.0)
[2018-01-12 19:46] LABS: ALB/GLOB RATIO 1.3 (1.1-1.8); ALBUMIN 4.1 g/dL (3.0-4.8); ALT/SGPT 34 U/L (7-56); AST/SGOT 23 U/L (17-59); BLOOD UREA NITROGEN 20 mg/dL (7-21); CALCIUM 9.7 mg/dL (8.4-10.5); GFR AFRICAN-AMERICAN > 60; GFR NON-AFRICAN AMERICAN > 60
[2018-01-12 19:57] LABS: TROPONIN I < 0.01 ng/mL
[2018-01-12 21:39] VITALS: BP 115/72; PULSE 74; RESP 18
--- NOTE | 2018-01-13 09:26 | RAD ---
HISTORY: chest pain COMPARISON: 10/21/2017 FINDINGS: LUNGS: No consolidation. PLEURA: No significant pleural effusion identified, no pneumothorax apparent. CARDIOVASCULAR: Mild cardiomegaly. Central pulmonary vasculature symmetrically -mildly prominent -similar to prior appearance OSSEOUS STRUCTURES: No significant abnormalities. VISUALIZED UPPER ABDOMEN: Normal. OTHER FINDINGS: None. IMPRESSION: No interval acute cardiopulmonary pathology. Mild cardiomegaly and similar central mild pulmonary vascular prominence - chronic mild pulmonary venous congestion possible
--- NOTE | 2018-01-13 10:14 | CARD ---
APPROVED REPORT EKG Measurement Heart [id number] <Conclusion> Normal sinus rhythm Normal ECG
== END 2018-01-12 21:42 | disposition home or self-care (01) ==
LOC: ED 18:12
DX: M94.0 Chondrocostal junction syndrome [Tietze] (principal); K27.9 Peptic ulcer, site unspecified, unspecified as acute or chronic, without hemorrhage or perforation; I10 Essential (primary) hypertension; E11.9 Type 2 diabetes mellitus without complications

== ENCOUNTER 2018-12-23 19:23 | Emergency (ER) | payer BC ==
[2018-12-23 19:37] VITALS: BMI 29.5
[2018-12-23 19:40] VITALS: BP 133/79; PULSE 72; RESP 18; TEMP 97.4; O2SAT 97
--- NOTE | 2018-12-23 20:11 | ED PDOC ---
Arrival/HPI - General Historian: Patient - History of Present Illness Narrative History of Present Illness (Text): 12/23/18 19:45 Bala Stoner is 38 year old male, whose past medical history includes diabetes, BRITNEY, GERD, scoliosis, emphysema, and asthma, who presents to the ED complaining of cough for the past 2 weeks. Patient states he went to Urgent Care twice, 1st visit he received Prednisone, and was given cough medication and a Z- tyler during the second visit, which he completed today. Patient states he still has a cough. Patient denies any fever, chills, chest pain, shortness of breath, no recent travel, or any other complaints. Symptom Onset: Gradual Symptom Course: Unchanged Activities at Onset: Light Context: Home <Kerline Gutierrez PA-C - Last Filed: 12/23/18 20:52> <Vasiliy Boo - Last Filed: 12/24/18 01:13> - General Chief Complaint: Cough, Cold, Congestion Time Seen by Provider: 12/23/18 19:41 Past Medical History - Provider Review Nursing Documentation Reviewed: Yes - Infectious Disease Hx of Infectious Diseases: None - Tetanus Immunization Tetanus Immunization: Unknown - Past Medical History Past Medical History: No Previous - Cardiac Hx Cardiac Disorders: No - Pulmonary Hx Respiratory Disorders: Yes Hx Sleep Apnea: Yes (cpap at home) - Neurological Hx Neurological Disorder: No - HEENT Hx HEENT Disorder: No - Renal Hx Renal Disorder: Yes Hx Kidney Stones: Yes (lithotripsy x2) - Endocrine/Metabolic Hx Endocrine Disorders: Yes - Hematological/Oncological Hx Blood Disorders: No - Integumentary Hx Psoriasis: Yes (knees arms fingers) - Musculoskeletal/Rheumatological Hx Musculoskeletal Disorders: Yes (scoliosis) Hx Back Pain: Yes Hx Falls: No Other/Comment: chronic r knee pain - Gastrointestinal Hx Gastrointestinal Disorders: Yes Hx Gastroesophageal Reflux: Yes Other/Comment: IBS - Genitourinary/Gynecological Hx Genitourinary Disorders: Yes Hx Hematuria: Yes Other/Comment: Chronic testicular pain - Psychiatric Hx Psychophysiologic Disorder: No Hx Substance Use: No - Past Surgical History Past Surgical History: No Previous - Surgical History Hx Orthopedic Surgery: Yes (right pinky as a child) Other/Comment: lithotripsy x2 - Anesthesia Hx Anesthesia: Yes Hx Anesthesia Reactions: No Hx Malignant Hyperthermia: No - Suicidal Assessment Feels Threatened In Home Enviroment: No <Kerline Gutierrez PA-C - Last Filed: 12/23/18 20:52> Family/Social History - Physician Review Nursing Documentation Reviewed: Yes Family/Social History: Unknown Family HX Smoking Status: Never Smoked Hx Alcohol Use: No Hx Substance Use: No Hx Substance Use Treatment: No <Kerline Gutierrez PA-C - Last Filed: 12/23/18 20:52> Allergies/Home Meds <Kerline Gutierrez PA-C - Last Filed: 12/23/18 20:52> <Vasiliy Boo - Last Filed: 12/24/18 01:13> Allergies/Adverse Reactions: Allergies No Known Allergies Allergy (Verified 10/21/17 17:35) Home Medications: Home Meds Medication Instructions Recorded Confirmed Omeprazole 40 mg PO DAILY 06/10/16 12/23/18 Review of Systems - Physician Review All systems were reviewed & negative as marked: Yes - Review of Systems Constitutional: Normal. absent: Fevers Eyes: Normal ENT: Normal Respiratory: Cough. absent: SOB Cardiovascular: Normal. absent: Chest Pain Gastrointestinal: Normal. absent: Abdominal Pain, Diarrhea, Nausea, Vomiting Genitourinary Male: Normal. absent: Dysuria, Frequency, Hematuria, Urinary Output Changes Musculoskeletal: Normal. absent: Back Pain Skin: Normal. absent: Rash Neurological: Normal. absent: Headache, Dizziness Endocrine: Normal Hemo/Lymphatic: Normal Psychiatric: Normal <Kerlien Gutierrez PA-C - Last Filed: 12/23/18 20:52> Physical Exam Vital Signs Reviewed: Yes Vital Signs Temp Pulse Resp BP Pulse Ox 12/23/18 19:40 97.4 F L 72 18 133/79 97 Temperature: Afebrile Blood Pressure: Normal Pulse: Regular Respiratory Rate: Normal Appearance: Positive for: Well-Appearing, Non-Toxic, Comfortable Pain Distress: None Mental Status: Positive for: Alert and Oriented X 3 - Systems Exam Head: Present: Atraumatic, Normocephalic Pupils: Present: PERRL Extroacular Muscles: Present: EOMI Conjunctiva: Present: Normal Ears: Present: Normal, NORMAL TM, Normal Canal. No: Erythema, TM Bulging, Fluid Mouth: Present: Moist Mucous Membranes Pharnyx: Present: Normal. No: ERYTHEMA, EXUDATE, TONSILS ENLARGED, Peritonsilar Swelling, Uvular Deviation, Muffled/Hoarse Voice, Strider, Soft Palate/Uvular Edema Nose (External): Present: Atraumatic Nose (Internal): Present: Normal Inspection Neck: Present: Normal Range of Motion. No: Meningeal Signs, MIDLINE TENDERNESS, Paraspinal Tenderness Respiratory/Chest: Present: Clear to Auscultation, Good Air Exchange. No: Respiratory Distress, Accessory Muscle Use Cardiovascular: Present: Regular Rate and Rhythm, Normal S1, S2. No: Murmurs Back: Present: Normal Inspection Upper Extremity: Present: Normal Inspection. No: Cyanosis, Edema Lower Extremity: Present: Normal Inspection. No: Edema Neurological: Present: GCS=15, CN II-XII Intact, Speech Normal Skin: Present: Warm, Dry, Normal Color. No: Rashes Psychiatric: Present: Alert, Oriented x 3, Normal Insight, Normal Concentration <Kerline Gutierrez PA-C - Last Filed: 12/23/18 20:52> Vital Signs Temp Pulse Resp BP Pulse Ox 12/23/18 19:40 97.4 F L 72 18 133/79 97 <Vasiliy Boo - Last Filed: 12/24/18 01:13> Medical Decision Making ED Course and Treatment: 12/23/18 19:45 Impression: 38 year old male complaining for 2 weeks. Plan: -- CXR -- Reassess and disposition Prior Visits: Notes and results from previous visits were reviewed. Progress Notes: CXR : NAD, as read by ZEUS On reevaluation, patient remains awake alert and oriented 3 in no acute distress, speaking in full sentences, breathing easy and unlabored. XR results and diagnosis of bronchitis d/w the patient. Advised to follow up with primary care physician in 1-2 days without fail. Return to the emergency room at any time for any new or worsening symptoms. Patient states he fully agrees with and understands discharge instructions. States that he agrees with the plan and disposition. Verbalized and repeated discharge instructions and plan. I have given the patient opportunity to ask any additional questions. - RAD Interpretation Radiology Orders: 12/23/18 19:47 CHEST TWO VIEWS (PA/LAT) [RAD] Stat <Kerline Gutierrez PA-C - Last Filed: 12/23/18 20:52> - RAD Interpretation Radiology Orders: 12/23/18 19:47 CHEST TWO VIEWS (PA/LAT) [RAD] Stat <Vasiliy Boo - Last Filed: 12/24/18 01:13> - PA / ACCOUNTS MANAGER / Resident Statement MD/DO has reviewed & agrees with the documentation as recorded. - Scribe Statement The provider has reviewed the documentation as recorded by the Karissaibjimmie Machado Provider Scribe Attestation: All medical record entries made by the Scribe were at my direction and personally dictated by me. I have reviewed the chart and agree that the record accurately reflects my personal performance of the history, physical exam, medical decision making, and the department course for this patient. I have also personally directed, reviewed, and agree with the discharge instructions and dis <Kerline Gutierrez PA-C - Last Filed: 12/23/18 20:52> Disposition/Present on Arrival - Present on Arrival Any Indicators Present on Arrival: No History of DVT/PE: No History of Uncontrolled Diabetes: No Urinary Catheter: No History of Decub. Ulcer: No History Surgical Site Infection Following: None - Disposition Have Diagnosis and Disposition been Completed?: Yes Disposition Time: 20:45 Patient Plan: Discharge <Kerline Gutierrez PA-C - Last Filed: 12/23/18 20:52> <Vasiliy Boo - Last Filed: 12/24/18 01:13> - Disposition Diagnosis: Acute bronchitis Disposition: HOME/ ROUTINE Condition: STABLE Discharge Instructions (ExitCare): Acute Bronchitis, Adult (DC) Additional Instructions: Thank you for letting us take care of you today. You were treated for acute bronchitis. The emergency medical care you received today was directed at your acute symptoms. It may take several days for your symptoms to resolve. Return to the Emergency Department if your symptoms worsen, do not improve, or if you have any other problems. Please contact your doctor in 2 days for re-evaluation and follow up. Bring any paperwork you were given at discharge with you along with any medications you are taking to your follow up visit. Our treatment cannot replace ongoing medical care by a primary care provider (PCP) outside of the emergency department. Thank you for allowing the [facility] team to be part of your care today. If you had an X-Ray : A Radiologist will review the ED reading if any change in treatment is needed we will contact you. Referrals: Vasiliy Keyes MD [Primary Care Provider] - Follow up with primary Forms: [employer] (Grenadian), WORK NOTE
--- NOTE | 2018-12-24 09:03 | RAD ---
Date of service: 12/23/2018 HISTORY: cough COMPARISON: 01/12/2018 TECHNIQUE: Chest PA and lateral FINDINGS: LUNGS: No active pulmonary disease. PLEURA: No significant pleural effusion identified. No pneumothorax apparent. CARDIOVASCULAR: No aortic atherosclerotic calcification present. Normal cardiac size. No pulmonary vascular congestion. OSSEOUS STRUCTURES: No significant abnormalities. VISUALIZED UPPER ABDOMEN: Normal. OTHER FINDINGS: None. IMPRESSION: No active disease.
== END 2018-12-23 21:02 | disposition home or self-care (01) ==
LOC: ED 19:23
DX: J20.9 Acute bronchitis, unspecified (principal); E11.9 Type 2 diabetes mellitus without complications; G47.33 Obstructive sleep apnea (adult) (pediatric)